=== PATIENT | female | born 1980 | race Caucasian/White ===

== ENCOUNTER 2021-07-01 21:02 | Emergency (ER) | payer BC ==
--- NOTE | 2021-07-01 21:49 | EDM.PDOC ---
ED HPI GENERAL MEDICAL PROBLEM - General Stated Complaint: HEADACHE LOSS OF TASTE AND SMELL Time Seen by Provider: 07/01/21 21:18 Source of Information: Reports: Patient - History of Present Illness INITIAL COMMENTS - FREE TEXT/NARRATIVE: Melissa is a 41 y/o female who comes to the ER with complaints of a sore throat and congestion. 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 Has had sinus allergy sx for the last few weeks, but new sx today. Lost her sense of taste today. - Related Data Allergies Allergy/AdvReac Type Severity Reaction Status Date / Time No Known Allergies Allergy Verified 11/29/13 14:01 Review of Systems - Review of Systems Review Of Systems: See Below Constitutional: Reports: No Symptoms Ears: Reports: No Symptoms Nose: Reports: No Symptoms Mouth/Throat: Reports: Other (Taste changes) Respiratory: Reports: No Symptoms Cardiovascular: Reports: No Symptoms GI/Abdominal: Reports: No Symptoms Genitourinary: Reports: No Symptoms Musculoskeletal: Reports: No Symptoms Skin: Reports: No Symptoms Neurological: Reports: No Symptoms Psychiatric: Reports: No Symptoms ED EXAM, GENERAL - Physical Exam Exam: See Below Exam Limited By: No Limitations General Appearance: Alert, WD/WN, No Apparent Distress (Adult female) Eye Exam: Bilateral Eye: PERRL Ears: Normal Canal, Hearing Grossly Normal, Normal TMs Nose: Normal Inspection, Normal Mucosa Throat/Mouth: Normal Inspection, Normal Lips, Normal Oropharynx, Normal Voice Head: Atraumatic, Normocephalic Neck: Supple Respiratory/Chest: No Respiratory Distress, Lungs Clear, Chest Non-Tender Cardiovascular: Normal Peripheral Pulses, Regular Rate, Rhythm GI/Abdominal: Normal Bowel Sounds, Soft, Non-Tender (Female) Exam: Deferred Rectal (Female) Exam: Deferred Extremities: Normal Inspection, Normal Range of Motion, Normal Capillary Refill Neurological: Alert, Oriented, CN II-XII Intact, No Motor/Sensory Deficits Psychiatric: Normal Affect, Normal Mood Skin Exam: Warm, Dry, Intact, Normal Color Lymphatic: No Adenopathy Course - Vital Signs Text/Narrative:: 2117 Seen by RESEARCH BIOSTATISTICIAN. COVID test ordered. 2154 COVID test negative. Reviewed guidelines for care. Will have pt see her PCP to adjust BP meds. Written instructions were given and she left the ER in stable condition. - Orders/Labs/Meds Labs: Laboratory Tests 07/01/21 Range/Units 21:15 SARS CoV-2 RNA Rapid VANITA Negative (NEGATIVE) Departure - Departure Time of Disposition: 21:46 Disposition: Home, Self-Care 01 Condition: Good Clinical Impression: URI (upper respiratory infection) Qualifiers: URI type: unspecified URI Qualified Code(s): J06.9 - Acute upper respiratory infection, unspecified HTN (hypertension) Qualifiers: Hypertension type: unspecified Qualified Code(s): I10 - Essential (primary) hypertension - Discharge Information Instructions: Hypertension, Adult, [id number], Upper Respiratory Infection, Adult Additional Instructions: -Monitor for any symptoms such as fever, shortness of breath, cough, or sore throat. -Continue to social distance yourself as much as possible. -Wash your hands often. -Wear a mask when you go out in public. -Stay away from individuals who are sick or who have tested positive. -Your rapid COVID test was NEGATIVE tonight, but you have just developed symptoms and your test may not yet be positive. Monitor symptoms and follow up with your PCP as needed. - Problem List & Annotations (1) HTN (hypertension) SNOMED Code(s): 84709763 Code(s): I10 - ESSENTIAL (PRIMARY) HYPERTENSION Status: Acute Annotation/Comment:: Currently on Metoprolol, BP uncontrolled. FU with PCP to adjust meds. Qualifiers: Hypertension type: unspecified Qualified Code(s): I10 - Essential (primary) hypertension (2) URI (upper respiratory infection) SNOMED Code(s): 22464398 Code(s): J06.9 - ACUTE UPPER RESPIRATORY INFECTION, UNSPECIFIED Status: Acute Annotation/Comment:: COVID test negative. Continue to monitor sx. Qualifiers: URI type: unspecified URI Qualified Code(s): J06.9 - Acute upper respiratory infection, unspecified - Problem List Review Problem List Initiated/Reviewed/Updated: Yes - Assessment/Plan Plan: See above
== END 2021-07-01 22:06 | disposition home or self-care (01) ==
LOC: VM.ED 21:02
DX: J06.9 Acute upper respiratory infection, unspecified (principal); I10 Essential (primary) hypertension; Z20.822 Contact with and (suspected) exposure to COVID-19
CPT/HCPCS: 99283; U0002